=== PATIENT | female | born 1970 | race Caucasian/White ===

== ENCOUNTER → 2019-10-28 | Outpatient (CLI) | payer SELFPAY | END | disposition home or self-care (01) | LOC: COVID19 04:42 | DX: R73.03 Prediabetes (principal); Z20.828 Contact with and (suspected) exposure to other viral communicable diseases ==

== ENCOUNTER → 2020-10-24 | Outpatient (CLI) | payer SELFPAY | END | disposition home or self-care (01) | LOC: RESCLI 10:39 | PROVIDERS: ATTEND Internal Medicine | DX: M06.9 Rheumatoid arthritis, unspecified (principal); K21.9 Gastro-esophageal reflux disease without esophagitis; J30.9 Allergic rhinitis, unspecified; K59.00 Constipation, unspecified; G89.29 Other chronic pain; F32.9 Major depressive disorder, single episode, unspecified; N95.9 Unspecified menopausal and perimenopausal disorder; Z87.891 Personal history of nicotine dependence; Z79.899 Other long term (current) drug therapy ==

== ENCOUNTER → 2020-12-13 | Outpatient (CLI) | payer OTHER | END | disposition home or self-care (01) | LOC: COVID19 16:21 | PROVIDERS: ATTEND Internal Medicine | DX: Z11.52 Encounter for screening for COVID-19 (principal) ==

== ENCOUNTER → 2020-12-28 | Outpatient (CLI) | payer OTHER | END | disposition home or self-care (01) | LOC: COVID19 15:17 | PROVIDERS: ATTEND Internal Medicine | DX: Z11.52 Encounter for screening for COVID-19 (principal) ==

== ENCOUNTER → 2021-04-06 | Outpatient (CLI) | payer SELFPAY | END | disposition home or self-care (01) | LOC: RESCLI 06:06 | PROVIDERS: ATTEND Internal Medicine | DX: G43.909 Migraine, unspecified, not intractable, without status migrainosus (principal); K21.9 Gastro-esophageal reflux disease without esophagitis; M06.9 Rheumatoid arthritis, unspecified; J30.2 Other seasonal allergic rhinitis; K59.00 Constipation, unspecified; G89.29 Other chronic pain; F32.9 Major depressive disorder, single episode, unspecified; N95.9 Unspecified menopausal and perimenopausal disorder; E53.8 Deficiency of other specified B group vitamins; Z88.8 Allergy status to other drugs, medicaments and biological substances; F17.200 Nicotine dependence, unspecified, uncomplicated; Z90.49 Acquired absence of other specified parts of digestive tract; Z79.899 Other long term (current) drug therapy ==

== ENCOUNTER → 2022-04-23 | Outpatient (CLI) | payer SELFPAY | END | disposition home or self-care (01) | LOC: RESCLI 00:53 | PROVIDERS: ATTEND Internal Medicine | DX: K21.9 Gastro-esophageal reflux disease without esophagitis (principal); M06.9 Rheumatoid arthritis, unspecified; J30.2 Other seasonal allergic rhinitis; K59.00 Constipation, unspecified; G89.29 Other chronic pain; F32.9 Major depressive disorder, single episode, unspecified; N95.9 Unspecified menopausal and perimenopausal disorder; F17.210 Nicotine dependence, cigarettes, uncomplicated; G43.909 Migraine, unspecified, not intractable, without status migrainosus; E53.8 Deficiency of other specified B group vitamins; Z88.8 Allergy status to other drugs, medicaments and biological substances; Z72.89 Other problems related to lifestyle; Z90.49 Acquired absence of other specified parts of digestive tract; Z98.890 Other specified postprocedural states; Z79.899 Other long term (current) drug therapy ==

== ENCOUNTER → 2023-10-27 | Outpatient (CLI) | payer SELFPAY | END | disposition home or self-care (01) | LOC: RESCLI 12:53 | PROVIDERS: ATTEND Student in an Organized Health Care Education/Training Program | DX: F32.9 Major depressive disorder, single episode, unspecified (principal); E78.2 Mixed hyperlipidemia; K21.9 Gastro-esophageal reflux disease without esophagitis; J30.2 Other seasonal allergic rhinitis; N95.9 Unspecified menopausal and perimenopausal disorder; G89.29 Other chronic pain; G47.00 Insomnia, unspecified; Z88.8 Allergy status to other drugs, medicaments and biological substances; F17.210 Nicotine dependence, cigarettes, uncomplicated; Z98.890 Other specified postprocedural states; Z90.49 Acquired absence of other specified parts of digestive tract; Z82.49 Family history of ischemic heart disease and other diseases of the circulatory system; Z79.899 Other long term (current) drug therapy ==